=== PATIENT | male | born 2000 | race Caucasian/White ===

== ENCOUNTER 2023-05-29 10:32 | Outpatient (RCR) | payer OTHER | END 2023-06-08 | LOC: WSOH | DX: S20.219D Contusion of unspecified front wall of thorax, subsequent encounter (principal); E03.9 Hypothyroidism, unspecified; Y99.0 Civilian activity done for income or pay ==

== ENCOUNTER 2023-06-26 08:02 | Outpatient (RCR) | payer OTHER | END 2023-07-09 | disposition home or self-care (01) | LOC: WSOH | DX: S20.219D Contusion of unspecified front wall of thorax, subsequent encounter (principal); E03.9 Hypothyroidism, unspecified; T78.40XD Allergy, unspecified, subsequent encounter; Y99.0 Civilian activity done for income or pay ==

== ENCOUNTER 2024-04-16 21:41 | Emergency (ER) | payer OTHER ==
[~2024-04-16] VITALS: Ht 180.3 cm; Wt 97.7 kg
[2024-04-16 21:55] VITALS: BP 150/90; TEMP 98.8
[2024-04-16] MEDS ORDERED: Albuterol/Ipratropium 3 MG-0.5 MG/3 ML Neb Soln IH ONE (22:15)
[2024-04-16] MEDS ORDERED: TESSALON P100 MG/CAP PO (22:56)
[2024-04-16] MEDS ORDERED: DOXYCYCLINE 10100 MG PO (22:56)
[2024-04-16 23:14] VITALS: PULSE 88
== END 2024-04-16 23:14 | disposition home or self-care (01) ==
LOC: COL.ER 21:41
DX: J18.9 Pneumonia, unspecified organism (principal)